=== PATIENT | female | born 1965 | race Caucasian/White ===

== ENCOUNTER 2021-02-22 16:07 | Inpatient (IN) | payer OTHER ==
[~2021-02-22] VITALS: Ht 152.4 cm; Wt 50.6 kg
[2021-02-22] MEDS ORDERED: nitroGLYCERIN 0.4mg SUBLingual tab SL PRN (16:35)
[2021-02-22] MEDS ORDERED: aspirin 81mg tab.chew PO ONE (16:35)
[2021-02-22 17:08] LABS: BASOPHILS # (AUTO) 0.1 X10'3 (0-0.2); BASOPHILS % (AUTO) 0.7 % (0-1); EOSINOPHILS # (AUTO) 0.2 X10'3 (0-0.9); EOSINOPHILS % (AUTO) 1.7 % (0-6); HEMATOCRIT 45.2 % (35.0-45.0); HEMOGLOBIN 15.6 g/dl (12.0-16.0); LYMPHOCYTES # (AUTO) 2.1 X10'3 (1.1-4.8); LYMPHOCYTES % (AUTO) 22.4 % (21-51); MEAN CORPUSCULAR HEMOGLOBIN 32.1 PG (27.0-31.0); MEAN CORPUSCULAR HGB CONC 34.6 g/dL (33.0-36.5); MEAN CORPUSCULAR VOLUME 92.7 FL (78-98); MONOCYTES # (AUTO) 0.8 X10'3 (0-0.9); MONOCYTES % (AUTO) 8.4 % (2-12); NEUTROPHILS # (AUTO) 6.2 X10'3 (1.8-7.7); NEUTROPHILS % (AUTO) 66.8 % (42-75); PLATELET COUNT 283 X10'3 (140-440); RED BLOOD COUNT 4.88 X10'6 (4.20-5.60); RED CELL DISTRIBUTION WIDTH 13.1 % (11.5-14.5); WHITE BLOOD COUNT 9.3 X10'3 (4.5-11.0)
[2021-02-22 17:16] LABS: ALANINE AMINOTRANSFERASE 45 U/L (12-78); ALBUMIN 3.2 G/DL (3.4-5.0); ALBUMIN/GLOBULIN RATIO 0.8 (1.1-1.5); ALKALINE PHOSPHATASE 202 IU/L (46-116); ANION GAP 9 (8-16); ASPARTATE AMINO TRANSFERASE 34 U/L (10-37); BILIRUBIN,TOTAL 0.5 MG/DL (0.1-1.0); BLOOD UREA NITROGEN 20 MG/DL (7-18); BUN/CREATININE RATIO 20.4 (6.6-38.0); CALCIUM 8.8 MG/DL (8.5-10.1); CHLORIDE 106 MMOL/L (99-107); CREATININE 0.98 MG/DL (0.40-0.90); GLUCOSE 83 MG/DL (70-104); POTASSIUM 4.3 MMOL/L (3.5-5.1); SODIUM 143 MMOL/L (135-145); TOTAL CARBON DIOXIDE 28.4 MMOL/L (24-32); TOTAL PROTEIN 7.3 G/DL (6.4-8.2); eGFR 59 ML/MIN
[2021-02-22] MEDS ORDERED: iohexol 350MG/ML 100ml bottle IV ONE (17:28)
[2021-02-22 19:11] LABS: D-DIMER 1.22 MG/L FEU (0-0.50)
[2021-02-22] MEDS ORDERED: nicotine 21mg patch - 24 hr TD ONE (19:55)
[2021-02-22] MEDS ORDERED: heparin 10,000 units/1 ML INJ IV PRN (19:55)
[2021-02-22] MEDS ORDERED: LORazepam 2 mg/ml vial IV ONE (19:55)
[2021-02-22] MEDS ORDERED: heparin 25,000 UNIT/250ml bag 250 ML IV SCH (19:55)
[2021-02-22] MEDS ORDERED: heparin 10,000 units/1 ML INJ IV ONE (19:55)
[2021-02-22] MEDS ORDERED: potassium Cl 20 mEq SR tablet PO PRN ×2 (20:15)
[2021-02-22] MEDS ORDERED: ondansetron/PF 4mg/2ml inj IV PRN (20:15)
[2021-02-22] MEDS ORDERED: mag hydrox/Alum hydrox/simeth 30ml oral suspension PO PRN (20:15)
[2021-02-22] MEDS ORDERED: potassium Cl 40MEQ/1/2NS 520ml 520 ML IV PRN ×2 (20:15)
[2021-02-22] MEDS ORDERED: magnesium hydroxide 30ml (MOM) UD suspension PO PRN (20:15)
[2021-02-22] MEDS ORDERED: normal saline 1000ml 1,000 ML IV SCH (20:15)
[2021-02-22] MEDS ORDERED: PERFLUTREN PROTEIN-A MICROSPHR (Optison) 0.22 MG/ML 3ML VIAL IV PRN (20:15)
[2021-02-22] MEDS ORDERED: acetaminophen 325mg tablet PO PRN (20:15)
[2021-02-22] MEDS ORDERED: HYDR25TA5 PO (21:51)
[2021-02-22] MEDS ORDERED: CEPH250T PO (21:52)
[2021-02-22] MEDS ORDERED: AMLO-93 PO (21:52)
--- NOTE | 2021-02-22 23:27 | NUR ---
no change in pt condition at this time; pt is resting comfortably with friend at bedside who is vaccinated; pt in NAD with VSS; will CTM
--- NOTE | 2021-02-23 00:31 | NUR ---
TED/FRIEND AT BEDSIDE WENT HOME - LEFT NUMBER [phone]
[2021-02-23] MEDS: HYDROcodone/acetaminophen 5mg/325mg tablet PO PRN ×3 (02:21→18:01)
[2021-02-23 03:31] LABS: BASOPHILS # (AUTO) 0.1 X10'3 (0-0.2); BASOPHILS % (AUTO) 0.8 % (0-1); EOSINOPHILS # (AUTO) 0.2 X10'3 (0-0.9); EOSINOPHILS % (AUTO) 2.8 % (0-6); HEMATOCRIT 45.8 % (35.0-45.0); HEMOGLOBIN 15.2 g/dl (12.0-16.0); LYMPHOCYTES % (AUTO) 37.8 % (21-51); MEAN CORPUSCULAR HEMOGLOBIN 31.2 PG (27.0-31.0); MEAN CORPUSCULAR HGB CONC 33.1 g/dL (33.0-36.5); MEAN CORPUSCULAR VOLUME 94.2 FL (78-98); MEAN PLATELET VOLUME 9.8 FL (7.4-10.4); MONOCYTES # (AUTO) 0.5 X10'3 (0-0.9); MONOCYTES % (AUTO) 6.4 % (2-12); NEUTROPHILS # (AUTO) 4.1 X10'3 (1.8-7.7); NEUTROPHILS % (AUTO) 52.2 % (42-75); PLATELET COUNT 285 X10'3 (140-440); RED BLOOD COUNT 4.86 X10'6 (4.20-5.60); RED CELL DISTRIBUTION WIDTH 13.4 % (11.5-14.5); WHITE BLOOD COUNT 7.9 X10'3 (4.5-11.0)
[2021-02-23 04:14] LABS: ALANINE AMINOTRANSFERASE 43 U/L (12-78); ALBUMIN 2.7 G/DL (3.4-5.0); ALBUMIN/GLOBULIN RATIO 0.8 (1.1-1.5); ALKALINE PHOSPHATASE 174 IU/L (46-116); ANION GAP 12 (8-16); ASPARTATE AMINO TRANSFERASE 33 U/L (10-37); BILIRUBIN,TOTAL 0.5 MG/DL (0.1-1.0); BLOOD UREA NITROGEN 17 MG/DL (7-18); BUN/CREATININE RATIO 21.8 (6.6-38.0); CALCIUM 8.3 MG/DL (8.5-10.1); CHLORIDE 106 MMOL/L (99-107); CREATININE 0.78 MG/DL (0.40-0.90); GLUCOSE 110 MG/DL (70-104); POTASSIUM 3.7 MMOL/L (3.5-5.1); SODIUM 141 MMOL/L (135-145); TOTAL CARBON DIOXIDE 22.6 MMOL/L (24-32); TOTAL PROTEIN 6.3 G/DL (6.4-8.2); eGFR 77 ML/MIN
[2021-02-23] MEDS: K and/or MAG REPLACEMENT MC SCH ×2 (08:00→20:00)
[2021-02-23] MEDS ORDERED: lisinopril 20mg tablet PO SCH (08:00)
[2021-02-23] MEDS: cephalexin 500mg capsule PO SCH ×3 (08:24→20:35)
[2021-02-23] MEDS: amLODIPine 5mg tablet PO SCH (08:26)
[2021-02-23] MEDS: docusate sod 100mg capsule PO SCH ×2 (08:26→20:35)
[2021-02-23] MEDS: HYDROchlorothiazide 25mg tablet PO SCH (08:26)
[2021-02-23] MEDS ORDERED: AMLO5TAB PO (10:02)
[2021-02-23 11:30] VITALS: BP 100/73
[2021-02-23 15:00] VITALS: BP 94/67
[2021-02-23 18:00] VITALS: BP 102/79
--- NOTE | 2021-02-23 18:56 | NUR ---
Problems reprioritized. Patient report given, questions answered & plan of care reviewed with Beau REDMAN.
[2021-02-23] MEDS ORDERED: enoxaparin 40mg/0.4ml syringe SQ SCH (20:00)
[2021-02-23] MEDS ORDERED: enoxaparin 50mg/0.5ml (from 3ml vial) syringe IV SCH (20:00)
[2021-02-23] MEDS: lactobacillus rhamnosus 10,000 MMU CELLS/CAPSULE PO SCH (20:35)
[2021-02-23 22:00] VITALS: BP 113/73
[2021-02-24 02:00] VITALS: BP 123/82
[2021-02-24] MEDS: HYDROcodone/acetaminophen 5mg/325mg tablet PO PRN (04:17)
[2021-02-24 06:00] VITALS: BP 109/82
[2021-02-24 06:55] LABS: BASOPHILS % (AUTO) 0.5 % (0-1); EOSINOPHILS # (AUTO) 0.1 X10'3 (0-0.9); EOSINOPHILS % (AUTO) 1.9 % (0-6); HEMATOCRIT 44.1 % (35.0-45.0); HEMOGLOBIN 14.9 g/dl (12.0-16.0); LYMPHOCYTES # (AUTO) 1.5 X10'3 (1.1-4.8); LYMPHOCYTES % (AUTO) 19.8 % (21-51); MEAN CORPUSCULAR HEMOGLOBIN 31.7 PG (27.0-31.0); MEAN CORPUSCULAR HGB CONC 33.7 g/dL (33.0-36.5); MEAN PLATELET VOLUME 8.2 FL (7.4-10.4); MONOCYTES # (AUTO) 0.5 X10'3 (0-0.9); MONOCYTES % (AUTO) 6.8 % (2-12); NEUTROPHILS # (AUTO) 5.4 X10'3 (1.8-7.7); PLATELET COUNT 264 X10'3 (140-440); RED BLOOD COUNT 4.69 X10'6 (4.20-5.60); RED CELL DISTRIBUTION WIDTH 13.1 % (11.5-14.5); WHITE BLOOD COUNT 7.5 X10'3 (4.5-11.0)
[2021-02-24 07:40] LABS: ALANINE AMINOTRANSFERASE 51 U/L (12-78); ALBUMIN/GLOBULIN RATIO 0.8 (1.1-1.5); ALKALINE PHOSPHATASE 198 IU/L (46-116); ANION GAP 15 (8-16); ASPARTATE AMINO TRANSFERASE 40 U/L (10-37); BILIRUBIN,TOTAL 0.5 MG/DL (0.1-1.0); BLOOD UREA NITROGEN 20 MG/DL (7-18); BUN/CREATININE RATIO 21.7 (6.6-38.0); CALCIUM 8.5 MG/DL (8.5-10.1); CHLORIDE 105 MMOL/L (99-107); CREATININE 0.92 MG/DL (0.40-0.90); GLUCOSE 102 MG/DL (70-104); POTASSIUM 4.3 MMOL/L (3.5-5.1); SODIUM 143 MMOL/L (135-145); TOTAL CARBON DIOXIDE 22.6 MMOL/L (24-32); TOTAL PROTEIN 6.9 G/DL (6.4-8.2); eGFR 63 ML/MIN
[2021-02-24] MEDS: K and/or MAG REPLACEMENT MC SCH (08:00)
[2021-02-24] MEDS: docusate sod 100mg capsule PO SCH (08:22)
[2021-02-24] MEDS: cephalexin 500mg capsule PO SCH ×2 (08:22→13:23)
[2021-02-24] MEDS: lactobacillus rhamnosus 10,000 MMU CELLS/CAPSULE PO SCH (08:22)
[2021-02-24] MEDS: HYDROchlorothiazide 25mg tablet PO SCH (08:28)
[2021-02-24] MEDS ORDERED: enoxaparin 50mg/0.5ml (from 3ml vial) syringe SUBCUT SCH (08:31)
[2021-02-24] MEDS: amLODIPine 5mg tablet PO SCH (09:22)
[2021-02-24] MEDS ORDERED: PANT40TA54 PO (10:13)
[2021-02-24] MEDS ORDERED: ACET-1008 PO (10:13)
[2021-02-24] MEDS ORDERED: HYDR25TA5 PO (10:13)
[2021-02-24] MEDS ORDERED: ALBU18HF2 INH (10:13)
[2021-02-24 11:00] VITALS: BP 122/93
== END 2021-02-24 14:27 | disposition home or self-care (01) | DRG 176 ==
LOC: ER 16:08 → ED HOLD 20:14 → UNDOADMIN 20:14 → ED HOLD 20:18 → PCU 3S 02-23 11:05
PROVIDERS: ADMIT Internal Medicine; ATTEND Internal Medicine
PROC: B32T1ZZ Computerized Tomography (CT Scan) of Left Pulmonary Artery using Low Osmolar Contrast (ICD-10-PCS; principal; 2021-02-22)
PROC: B3201ZZ Computerized Tomography (CT Scan) of Thoracic Aorta using Low Osmolar Contrast (ICD-10-PCS; 2021-02-22)
PROC: B32S1ZZ Computerized Tomography (CT Scan) of Right Pulmonary Artery using Low Osmolar Contrast (ICD-10-PCS; 2021-02-22)
DX: I26.99 Other pulmonary embolism without acute cor pulmonale (principal); I10 Essential (primary) hypertension; F17.210 Nicotine dependence, cigarettes, uncomplicated; Z20.822 Contact with and (suspected) exposure to COVID-19; R79.89 Other specified abnormal findings of blood chemistry; J44.9 Chronic obstructive pulmonary disease, unspecified; Z79.899 Other long term (current) drug therapy; Z98.891 History of uterine scar from previous surgery; Z71.6 Tobacco abuse counseling
CPT/HCPCS: 36415; 71045; 71275; 80053; 83880; 84145; 84484; 85025; 85379; 85730; 87081; 87635; 93005; 93306; 93970; 99285; C9803; G0378; J1644; J1650; J2060; J7030; Q9967